=== PATIENT | female | born 1960 | race Two or more races ===

== ENCOUNTER 2025-08-23 14:49 | Emergency (ER) | payer MEDICAID, SELFPAY ==
[2025-08-23 15:26] VITALS: BP 134/82; PULSE 69; RESP 18; TEMP 36.6; O2SAT 96; BMI 26.9
--- NOTE | 2025-08-23 15:26 | XR_ITS ---
Examination: Foot, left, 3 views Technique: AP, oblique, lateral views foot, 3 views Date and time of exam: August 23 2025 1530 hours INDICATIONS: Patient tripped and fell today with injury to the foot, first digit pain FINDINGS: Significant osteopenia Mild to moderate narrowing first metatarsophalangeal joint with mild bunion deformity No acute fracture IMPRESSION: No acute fracture
[2025-08-23] MEDS: IBUPROFEN TAB 400 MG TABLET 800 MG PO (16:00)
--- NOTE | 2025-08-23 16:24 | PD.EDFALL ---
ED Fall Injury RME/HPI General Chief Complaint: Fall Stated Complaint: FALL YESTERDAY; L) GREAT TOE INJURY Time Seen by Provider: 08/23/25 15:26 Source: patient Arrival date/time: 08/23/25 14:49 64-year-old female with no known medical history presents to the emergency room with a chief complaint of tenderness and swelling to her left great toe after a ground-level fall that occurred yesterday. Mode of arrival: ambulatory Limitations: no limitations Related Data Home Medications ?Medication ?Instructions ?Recorded ?Confirmed pregabalin 75 mg capsule (Lyrica) 150 mg PO QHS 10/22/19 06/21/23 losartan 100 mg tablet 100 mg PO DAILY 06/21/23 06/21/23 Previous Rx's ?Medication ?Instructions ?Recorded ipratropium bromide 21 mcg (0.03 2 spray intranasal BID #30 mL 10/22/19 %) nasal spray loratadine 10 mg tablet (Allergy 10 mg PO QDAY allergy symptoms #30 10/22/19 Relief (loratadine)) tabs Allergies Allergy/AdvReac Type Severity Reaction Status Date / Time morphine Allergy Intermediate Nausea Verified 08/23/25 14:53 propoxyphene Allergy Intermediate Nausea Verified 08/23/25 14:53 carisoprodol Allergy Unknown Verified 08/23/25 14:53 codeine Allergy Unknown Nausea/Vomitiing, Verified 08/23/25 14:53 HIVES hydrocodone Allergy Unknown Nausea/Vomitiing, Verified 08/23/25 14:53 HIVES Review of Systems Review of Systems Systems Reviewed: All systems reviewed, normal except as documented Constitutional Constitutional: Reports system reviewed and no additional complaints, except as documented, Denies fatigue, Denies fever(s), Denies headache(s) and Denies weakness Eyes Eyes: Reports system reviewed and no additional complaints, except as documented, Denies blurry vision and Denies change in vision ENT Ears, Nose, Mouth, and Throat: Reports system reviewed and no additional complaints, except as documented, Denies otalgia, Denies headache(s), Denies nasal congestion, Denies throat swelling and Denies vertigo Cardiovascular Cardiovascular: Reports system reviewed and no additional complaints, except as documented, Denies chest pain, Denies dyspnea and Denies dyspnea on exertion Respiratory Respiratory: Reports system reviewed and no additional complaints, except as documented, Denies chest congestion, Denies cough, Denies dyspnea, Denies dyspnea on exertion and Denies wheezing Gastrointestinal Gastrointestinal: Reports system reviewed and no additional complaints, except as documented, Denies abdominal pain, Denies cramping, Denies nausea and Denies vomiting Genitourinary Genitourinary: Reports system reviewed and no additional complaints, except as documented Musculoskeletal Musculoskeletal: Reports system reviewed and no additional complaints, except as documented, Reports arthralgias, Denies back pain, Reports joint swelling and Reports limited range of motion Integumentary/Breasts Skin/Breast: Reports system reviewed and no additional complaints, except as documented and Denies wounds Neurologic Neurologic: Reports system reviewed and no additional complaints, except as documented, Denies confusion, Denies headache(s), Denies lack of coordination, Denies vertigo and Denies weakness Psychiatric Psychiatric: Reports system reviewed and no additional complaints, except as documented, Denies anxiety, Denies confusion, Denies depression, Denies paranoia, Denies suicidal ideation and Denies tactile hallucinations Endocrine Endocrine: Reports system reviewed and no additional complaints, except as documented and Denies fatigue Hematologic/Lymphatic Hematologic/Lymphatic: Reports system reviewed and no additional complaints, except as documented and Denies lymphadenopathy Allergic/Immunologic Allergic/Immunologic: Reports system reviewed and no additional complaints, except as documented, Denies throat swelling, Denies urticaria and Denies wheezing Past Medical History Past Medical History CARDIAC: Positive Hypertension; Negative Congestive Heart Failure RESPIRATORY: Positive Pneumonia; Negative Chronic Obstructive Pulmonary Disease (COPD) GENITOURINARY: Negative Renal Disease MUSCULOSKELETAL: Positive Fibromyalgia ENDOCRINE: Negative Diabetes Mellitus Type 1 or Diabetes Mellitus Type 2 Social History SMOKING STATUS: Never smoker ED Exam General Limitations: Present no limitations General appearance: Present alert and in no apparent distress Head Head exam: Present atraumatic Eye Eye exam: Present normal appearance, PERRL and EOMI ENT ENT exam: Present normal exam, normal oropharynx and mucous membranes moist Neck Neck exam: Present normal inspection, full ROM and trachea midline Chest Chest inspection: Present normal inspection and symmetric chest wall rise Respiratory Respiratory exam: Present normal lung sounds bilaterally Cardiovascular Cardiovascular exam: Present regular rate, normal rhythm and normal heart sounds Abdominal Exam Abdominal exam: Present soft and normal bowel sounds Extremities Exam Extremities exam: Present normal inspection and full ROM Expanded Lower Extremity Exam Hip/Pelvis exam: Present normal inspection Upper leg exam: Present normal inspection Knee exam: Present normal inspection Lower leg exam: Present normal inspection Ankle exam: Present normal inspection Foot/toe exam: Present tenderness Gait: observed and limited by pain Back Exam Back exam: Present normal inspection and full ROM Neurological Exam Neurological exam: Present alert, oriented X3 and CN II-XII intact Psychiatric Psychiatric exam: Present normal affect and normal mood Skin Skin exam: Present warm, dry, intact and normal color Course Quality Measures none Orders Category Date Time Status XR foot comp LT min 3V Stat Exams 08/23/25 15:26 Completed Ibuprofen Tab [Motrin Tab] Med 08/23/25 15:56 Discontinued 800 mg PO X1 ONE Ketorolac Inj [Toradol Inj] Med 08/23/25 15:26 Discontinued 30 mg IM X1 ONE Vital Signs Vital signs: Vital Signs Temperature 98 F 08/23/25 15:26 Pulse Rate 69 08/23/25 15:26 Respiratory Rate 18 08/23/25 15:26 Blood Pressure 134/82 H 08/23/25 15:26 Pulse Oximetry (%) 96 08/23/25 15:26 Oxygen Delivery Method Room Air 08/23/25 15:26 Fall MDM Narrative MDM Narrative:: 64-year-old female with no known medical history presents to the emergency room with a chief complaint of tenderness and swelling to her left great toe after a ground-level fall that occurred yesterday. Patient is hemodynamically stable and in no apparent distress Physical examination shows tenderness bruising and some mild swelling to the patient's great toe on her left foot. Patient states she had a ground-level fall that occurred in her room when she tripped. X-ray of the left foot was completed and was negative for any acute fracture or dislocation Patient was discharged and educated to follow-up with primary care provider in the next 24 to 48 hours and return to the emergency room for any evidence of worsening signs or symptoms Patient data External records reviewed:: [facility] previous records Clinical information provided by:: patient Social determinants that could affect healthcare access:: none Patient has the following chronic illnesses:: No chronic illness How is presenting disease/condition affected by chronic disease/condition?: no chronic disease Evaluation data The following diagnostics were reviewed and interpreted by me:: lab results and radiology exam(s) Lab and/or radiology exams considered but not ordered:: Labs and radiology exams considered and ordered Interpretation Summary: X-ray foot-FINDINGS: Significant osteopenia Mild to moderate narrowing first metatarsophalangeal joint with mild bunion deformity No acute fracture IMPRESSION: No acute fracture Medications / Prescriptions Medications or Prescriptions considered but not ordered:: Medication given Medication administrations:: Medication Administration History Discontinued Medications Ibuprofen (Ibuprofen Tab 400 Mg Tablet) 800 mg PO X1 ONE Stop: 08/23/25 15:57 Last Admin: 08/23/25 16:00 Dose: 800 mg Documented By: KEYLA Ketorolac Tromethamine (Ketorolac Inj 60 Mg/2 Ml Vial) 30 mg IM X1 ONE Stop: 08/23/25 15:27 Last Admin: 08/23/25 15:54 Dose: Not Given Documented By: KEYLA Non-Admin Reason: Patient Refused Medication given Consultations Consultation(s) initiated? (list below): No Diagnosis Fall Differential Diagnosis: other (Sprain the great toe on the left foot/toe fracture) Most likely diagnosis given after review of the tests above:: Sprain of great toe on the left Admission Indicated Admission indicated?: not indicated Admission Request Was there a request for admission?: No Disposition Plan Disposition Plan: Discharge Discharge Attestation Discharge Attestation: The patient and all family members were given an opportunity to ask questions and understood the discharge instructions. Discharge instructions specifically effects, indications for sooner follow up or return to the emergency department, and the expected course of current diagnosis. Patient condition: Stable Discharge Plan Plan Patient Disposition: HOME (Self Care) Discharge Disposition comment: Stable Prescriptions/Referrals Prescriptions/Med Rec: No Action pregabalin [Lyrica] 75 mg capsule 150 mg PO QHS ipratropium bromide 0.03 % spray,non-aerosol 2 spray INTRANASAL BID Qty: 30 0RF Rx Instructions: administer into each nostril; wait 30 seconds between sprays loratadine [Allergy Relief (loratadine)] 10 mg tablet 10 mg PO QDAY Qty: 30 3RF losartan 100 mg tablet 100 mg PO DAILY Referrals: No Primary/Family,Physician [Primary Care Provider] - In 1 week Problem List Clinical Impression: Sprain of great toe of left foot Patient/Caregiver Discharge Instructions Education Materials: ED Toe Sprain Additional Instructions: Please follow-up with your primary care provider in the next 24 to 48 hours An x-ray of your toe was completed and was negative for any acute fracture or dislocation. For any evidence of worsening signs or symptoms return to the emergency room immediately Print Language: Maori Stand Alone Forms: Gladys Award Info., Patient Portal Info Letter PA/CATH LABORATORY TECHNICIAN Supervising Physician PA/CATH LABORATORY TECHNICIAN Supervising Physician: Dr. Saldivar
== END 2025-08-23 17:50 | disposition home or self-care (01) ==
PROVIDERS: Emergency Provider Family Medicine
DX: S93.522A Sprain of metatarsophalangeal joint of left great toe, initial encounter (principal); W01.0XXA Fall on same level from slipping, tripping and stumbling without subsequent striking against object, initial encounter
CPT/HCPCS: 73630; 99283; A9270

== ENCOUNTER → 2025-08-30 | Outpatient (CLI) | payer MEDICARE, MEDICAID, SELFPAY ==
--- NOTE | 2025-08-30 16:00 | XR_ITS ---
Examination: MRI left wrist without contrast Date and time of exam: August 30, 2025, 1656 hours INDICATIONS: Increasing wrist pain numbness and paresthesias 1 year Technique: Multiple axial sagittal and coronal images of the left wrist have been obtained with the Siemens high-resolution 1.5 Yadi MRI scanner. Images obtained include T2-weighted fat-suppressed sagittal sections, TR 3500, TE 46, T2 weighted coronal fat suppressed images, TR 3050, TE 84, T2-weighted transverse fat suppressed images, TR 3260, TE 63, proton density transverse images, TR 4720 TE 46, and T1 weighted coronal images, TR 560, TE 13. Findings: Adequate marrow signal distal radius distal ulna carpal bones Intact triangular fibrocartilage No avascular necrosis Flexor tendons are intact, normal median nerve Flexor retinaculum does not appear thickened No ganglion cyst No extensor or flexor tendinitis Mild osteoarthritis first carpometacarpal joint IMPRESSION: Negative for occult fracture or bone contusion or marrow edema or avascular necrosis Intact triangular fibrocartilage Flexor tendons are intact, normal median nerve Normal-appearing flexor retinaculum Mild osteoarthritis first carpometacarpal joint
== END | disposition home or self-care (01) ==
LOC: SMRI 16:09
PROVIDERS: PCP Physician Assistant; Referring Provider Physician Assistant; Visit Provider Physician Assistant
DX: M18.12 Unilateral primary osteoarthritis of first carpometacarpal joint, left hand (principal)
CPT/HCPCS: 73221